=== PATIENT | female | born 1970 | race Hispanic/Latino ===

== ENCOUNTER 2016-11-09 13:20 | Emergency (ER) | payer SELFPAY ==
[2016-11-09 13:51] VITALS: BP 99/60; PULSE 105; RESP 22; TEMP 98; O2SAT 99
--- NOTE | 2016-11-09 14:19 | ED PDOC ---
HPI: General Adult Time Seen by Provider: 11/09/16 14:05 Chief Complaint (Nursing): Palpitations Chief Complaint (Provider): palpiations History Per: Patient History/Exam Limitations: no limitations Onset/Duration Of Symptoms: Hrs (x 3) Have you had recent travel within the past 21 days to any of the following countries: [place], [place], [place] or [place]?: No Current Symptoms Are (Timing): Gone Now Additional Complaint(s): Sonam Guerrero is a 46 year old female, with a previous medical history of anxiety, depression, hormone imbalance, increased prolactin, and gamaliel, who presents to the ED with complaints of chest palpitations which began 3 hours prior to arrival. Pt. reports to taking her prescribed klonopin which alleviated the symptom. Pt reports no heart palpitations at this time. Pt states to having accupuncture done 5 days ago where she noted oil being secreted from her left breast. Pt also states to producing milk. Pt squeezed her left breast to show a drop of milk. Pt also states to seeing "eggs" in her stool. Pt denies any chest pain, nausea, vomiting, diarrhea, vision changes, abdominal pain or extremity pain. Of note, Pt is requesting milk be tested, an imaging of her breast, a hormonal panel and imaging for her pituitary gland.Pt reports her TSH is 2.0 but states her "optimal" levels are between 0-1. Pt states to having multiple PMD with no private equity associate. Pt states endocrinologists do nothing for her. Pt states to currently taking klonopin, armour, and zoloft. PMD: multiple PMDs including Janusz Rees Past Medical History Reviewed: Historical Data, Nursing Documentation, Vital Signs Vital Signs: Last Vital Signs Temp 98.0 F 11/09/16 13:47 Pulse 105 H 11/09/16 13:47 Resp 22 11/09/16 13:47 BP 99/60 L 11/09/16 13:47 Pulse Ox 99 11/09/16 16:08 - Medical History Other PMH: gamaliel, hormonal imbalance - Family History Family History: States: Unknown Family Hx - Allergies Allergies/Adverse Reactions: Allergies Allergy/AdvReac Type Severity Reaction Status Date / Time Penicillins Allergy RASH Verified 11/09/16 13:47 Review of Systems ROS Statement: Except As Marked, All Systems Reviewed And Found Negative Eyes: Negative for: Vision Change Cardiovascular: Positive for: Palpitations (gone now ). Negative for: Chest Pain Gastrointestinal: Negative for: Nausea, Vomiting, Abdominal Pain, Diarrhea Musculoskeletal: Negative for: Leg Pain Physical Exam - Reviewed Nursing Documentation Reviewed: Yes Vital Signs Reviewed: Yes - Physical Exam Appears: Positive for: Well, Non-toxic, No Acute Distress Head Exam: Positive for: ATRAUMATIC, NORMAL INSPECTION, NORMOCEPHALIC Skin: Positive for: Normal Color, Warm, DRY Eye Exam: Positive for: EOMI, Normal appearance, PERRL ENT: Positive for: Normal ENT Inspection Neck: Positive for: Normal, Painless ROM Cardiovascular/Chest: Positive for: Regular Rate, Rhythm Respiratory: Positive for: CNT, Normal Breath Sounds Gastrointestinal/Abdominal: Positive for: Normal Exam, Bowel Sounds, Soft. Negative for: Tenderness Back: Positive for: Normal Inspection. Negative for: L CVA Tenderness, R CVA Tenderness Extremity: Positive for: Normal ROM. Negative for: Tenderness, Pedal Edema Neurologic/Psych: Positive for: Alert, manager heart II-XII, Oriented. Negative for: Motor/Sensory Deficits Comments: breast exam preformed with Channing RN as acetylene torch burner. No masses or tenderness upon exam. - ECG O2 Sat by Pulse Oximetry: 99 (RA) Pulse Ox Interpretation: Normal - Progress ED Course And Treament: 1417: States she does not want to be seen any further. Wishes to leave and will get testing done at her doctor's office. AAOx3. Pain free. Ambulated with no issues. Has capacity to make decisions. Will AMA. Aware of possible or decreased functioning from the cause of her symptoms. Medical Decision Making Medical Decision Making: Initial Impression: palpitation Leaving Against Medical Advice (AMA): This patient is choosing to leave against medical advice. The EP has personally explained to the pt that choosing to do so may result in permanent bodily harm or . The EP discussed at great length that without further evaluation and monitoring there may be unforeseen circumstances and/or deterioration causing permanent bodily harm or as a result of their choice. The pt verbalized these risks back to the physician in laymans terms. The pt is alert , oriented, and shows the mental capacity to make clear decisions regarding the pts health care at this time. The pt continues to wish to leave against medical advice. In light of the pts decision to leave AMA, follow-up has been arranged and the pt is aware of the importance of following up as instructed. The pt has been advised that they should return to the ED immediately if they change their mind at any time, or if thier condition begins to change or worsen in any way. Scribe Attestation: Documented by Gala Mansfield, acting as a scribe for Kahlil Hayward MD. Provider Scribe Attestation: All medical record entries made by the Scribe were at my direction and personally dictated by me. I have reviewed the chart and agree that the record accurately reflects my personal performance of the history, physical exam, medical decision making, and the department course for this patient. I have also personally directed, reviewed, and agree with the discharge instructions and disposition. Disposition - Clinical Impression Clinical Impression: Palpitations, Breast discharge - Patient ED Disposition Is Patient to be Admitted: No - Disposition Disposition: Against Medical Advice Disposition Time: 14:21 Condition: STABLE Additional Instructions: You are going against medical advice. You are aware of possible or decreased functioning from the cause of your symptoms. You are taking your own risk and going home. Return soon as possible for further testing and evaluation. Instructions: Palpitations (ED), [facility] ([place])
== END 2016-11-09 15:30 | disposition left against medical advice (07) ==
LOC: H.ER 13:20
DX: R00.2 Palpitations (principal)

== ENCOUNTER 2018-01-27 05:00 | Emergency (ER) | payer BC ==
--- NOTE | 2018-01-27 06:45 | ED PDOC ---
HPI: Abdomen Time Seen by Provider: 01/27/18 05:59 Chief Complaint (Nursing): Back Pain Chief Complaint (Provider): bilateral flank pain History Per: Patient Onset/Duration Of Symptoms: Days (x1 week), Intermittent Episodes Current Symptoms Are (Timing): Still Present Additional Complaint(s): 47 year old female presents to the emergency department complaining of intermittent episodes of bilateral flank pain associated with dysuria onset one week. Patient states earlier this week she saw her PMD who ordered blood work. She denies fever and reports she is not currently on any antibiotics or pain medication. PMD: Dr. Flowers Past Medical History Reviewed: Historical Data, Nursing Documentation, Vital Signs Vital Signs: Last Vital Signs Temp 98.2 F 01/27/18 08:57 Pulse 75 01/27/18 08:57 Resp 14 01/27/18 08:57 BP 118/79 01/27/18 08:57 Pulse Ox 100 01/27/18 08:57 - Medical History PMH: Anxiety, Hypothyroidism (hashimotos) Other PMH: Aram's disease - Surgical History Surgical History: No Surg Hx - Family History Family History: States: Unknown Family Hx - Social History Current smoker - smoking cessation education provided: No Alcohol: None Drugs: Denies - Home Medications Home Medications: Ambulatory Orders Medication Instructions Recorded Fluconazole [Diflucan] 150 mg PO DAILY #2 tab 01/27/18 Naproxen [Naprosyn] 500 mg PO Q12H #20 tab 01/27/18 Sulfamethoxazole/Trimethoprim 1 tab PO BID #20 tab 01/27/18 [Bactrim DS 800 mg-160 mg] - Allergies Allergies/Adverse Reactions: Allergies Allergy/AdvReac Type Severity Reaction Status Date / Time Penicillins Allergy RASH Verified 11/09/16 13:47 Review of Systems ROS Statement: Except As Marked, All Systems Reviewed And Found Negative Constitutional: Negative for: Fever Gastrointestinal: Positive for: Abdominal Pain (bilateral flank pain) Genitourinary Female: Positive for: Dysuria Physical Exam - Reviewed Nursing Documentation Reviewed: Yes Vital Signs Reviewed: Yes - Physical Exam Appears: Positive for: No Acute Distress Head Exam: Positive for: ATRAUMATIC, NORMOCEPHALIC Skin: Positive for: Normal Color, Warm, Dry Eye Exam: Positive for: Normal appearance Neck: Positive for: Normal, Painless ROM, Supple Cardiovascular/Chest: Positive for: Regular Rate, Rhythm. Negative for: Murmur Respiratory: Positive for: Normal Breath Sounds. Negative for: Accessory Muscle Use, Respiratory Distress Gastrointestinal/Abdominal: Positive for: Normal Exam, Soft. Negative for: Tenderness Back: Positive for: Normal Inspection. Negative for: L CVA Tenderness, R CVA Tenderness, Vertebral Tenderness Extremity: Positive for: Normal ROM Neurologic/Psych: Positive for: Alert, Oriented (x3). Negative for: Motor/ Sensory Deficits - Laboratory Results Result Diagrams: 01/27/18 06:55 01/27/18 06:55 - ECG O2 Sat by Pulse Oximetry: 99 (RA) Pulse Ox Interpretation: Normal Medical Decision Making Medical Decision Making: Initial Impression: flank pain with dysuria Ddx: uti, kidney stones, musculoskeletal pain Time: 6:22 Initial Plan: --CT Abd / Pelvis --BMP --ED Urine dipstick --CBC with differential --Urinalysis Scribe Attestation: Documented by Vanna Castro, acting as a scribe for John Schofield MD Provider Scribe Attestation: All medical entries made by the Scribe were at my direction and personally dictated by me. I have reviewed the chart and agree that the record accurately reflects my personal performance of the history, physical exam, medical decision making, and the department course for this patient. I have also personally directed, reviewed, and agree with the discharge instructions and disposition. Disposition - Clinical Impression Clinical Impression: UTI (urinary tract infection), Renal cyst, Back pain - Patient ED Disposition Is Patient to be Admitted: Transfer of Care - Disposition Referrals: [facility] [Outside] Ruy Christian MD [Staff Provider] - Disposition: Transfer of Care Disposition Time: 07:00 Condition: STABLE Prescriptions: Fluconazole [Diflucan] 150 mg PO DAILY #2 tab Naproxen [Naprosyn] 500 mg PO Q12H #20 tab Sulfamethoxazole/Trimethoprim [Bactrim DS 800 mg-160 mg] 1 tab PO BID #20 tab Instructions: Urinary Tract Infection, Adult (DC) Forms: [employer] (Syriac) Patient Signed Over To: Elian Coyne
[2018-01-27 07:06] LABS: SQUAMOUS EPITHIAL 17 /hpf (0-5); URINE BACTERIA RARE (<OCC); URINE BILIRUBIN NEGATIVE (NEGATIVE); URINE BLOOD NEGATIVE (NEGATIVE); URINE CLARITY CLOUDY (Clear); URINE COLOR YELLOW (YELLOW); URINE GLUCOSE (UA) NEG (Normal); URINE LEUKOCYTE ESTERASE TRACE Leu/uL (Negative); URINE PROTEIN NEGATIVE (NEGATIVE); URINE UROBILINOGEN 0.2-1.0 mg/dL (0.2-1.0)
[2018-01-27 07:07] LABS: BASO % 0.7 % (0.0-2.0); EOS # 0.1 K/uL (0.0-0.7); EOS % 0.9 % (0.0-4.0); HEMOGLOBIN 13.4 g/dL (12.0-16.0); LYMPH # 1.9 K/uL (1.0-4.3); LYMPH % 30.7 % (20.0-40.0); MEAN CELL VOLUME 91.6 fl (81.0-99.0); MEAN PLATELET VOLUME 8.5 fl (7.2-11.7); MONO # 0.5 K/uL (0.0-0.8); NEUT # 3.7 K/uL (1.8-7.0); NEUT % 59.7 % (50.0-75.0); NRBC % 0.1 % (0.0-0.0); RBC 4.18 Mil/uL (3.80-5.20); RED CELL DISTRIBUTION WIDTH 13.6 % (11.5-14.5); WHITE BLOOD COUNT 6.3 K/uL (4.8-10.8)
[2018-01-27 07:14] LABS: BLOOD UREA NITROGEN 17 mg/dl (7-17); CALCIUM 8.7 mg/dL (8.4-10.2); GFR AFRICAN-AMERICAN > 60; GFR NON-AFRICAN AMERICAN > 60
[2018-01-27] MEDS ORDERED: Iohexol 300 100 ML IJ ONE (07:41)
[2018-01-27] MEDS ORDERED: Sodium Chloride 0.9% 50 ML IV ONE (07:42)
--- NOTE | 2018-01-27 08:26 | CT ---
PROCEDURE: CT Abdomen and Pelvis with contrast HISTORY: bilateral flank pain COMPARISON: None. TECHNIQUE: Contrast dose: Omnipaque 300, 100 cc Radiation dose: Total exam DLP = 583.60 mGy-cm. This CT exam was performed using one or more of the following dose reduction techniques: Automated exposure control, adjustment of the mA and/or kV according to patient size, and/or use of iterative reconstruction technique. FINDINGS: LOWER THORAX: Unremarkable. LIVER: Diminished attenuation is appreciate diffusely compatible with hepatic steatosis. A tiny lucency seen the right lobe liver too small to characterize. The remainder of the liver appears unremarkable. GALLBLADDER AND BILE DUCTS: Unremarkable. PANCREAS: Unremarkable. No gross lesion or ductal dilatation. SPLEEN: Unremarkable. ADRENALS: There is a 1.3 cm nodule at the left adrenal gland, nonspecific in appearance for which follow-up MRI is advised to exclude potential malignancy though this is unlikely. KIDNEYS AND URETERS: A 2.2 x 2.1 cm cyst is seen in the left kidney's upper pole. No hydronephrosis. No solid mass. VASCULATURE: Unremarkable. No aortic aneurysm. BOWEL: No bowel obstruction is appreciated and there is no pericolic repair mesenteric edema. Lail-fq-wbfcgyor fecal loading is seen in various large-bowel segments. Small bowel appears collapsed. APPENDIX: Appendix not identified. No CT evidence to suggest appendicitis at this time. PERITONEUM: Unremarkable. No free fluid. No free air. LYMPH NODES: Unremarkable. No enlarged lymph nodes. BLADDER: Unremarkable. REPRODUCTIVE: Unremarkable. BONES: No acute fracture. OTHER FINDINGS: None. IMPRESSION: 1. Hepatic steatosis. 2. Small simple cyst upper pole left kidney. No obstructive uropathy or radiodense urolithiasis appreciated bilaterally. No perinephric reactive changes bilaterally. 3. 1.3 cm left adrenal nodule for which follow-up abdomen MRI is advised to exclude potential malignancy though this is not likely. 4. No bowel obstruction, mesenteric edema, ascites or free intraperitoneal gas collection
--- NOTE | 2018-01-27 08:51 | ED PDOC ---
- Laboratory Results Result Diagrams: 01/27/18 06:55 01/27/18 06:55 - ECG O2 Sat by Pulse Oximetry: 99 (RA) - Progress Re-evaluation Time: 08:49 Condition: Improved Disposition - Clinical Impression Clinical Impression: UTI (urinary tract infection), Renal cyst - POA Present On Arrival: None - Disposition Referrals: [facility] [Outside] Ruy Christian MD [Staff Provider] - Disposition: Routine/Home Disposition Time: 08:50 Prescriptions: Naproxen [Naprosyn] 500 mg PO Q12H #20 tab Sulfamethoxazole/Trimethoprim [Bactrim DS 800 mg-160 mg] 1 tab PO BID #20 tab Instructions: Urinary Tract Infection, Adult (DC) Forms: [employer] (Amharic)
[2018-01-27 08:58] VITALS: BP 118/79; PULSE 75; RESP 14; TEMP 98.2
[2018-01-27 22:45] VITALS: O2SAT 99
== END 2018-01-27 08:59 | disposition home or self-care (01) ==
LOC: H.ER 05:00
DX: N39.0 Urinary tract infection, site not specified (principal); N28.1 Cyst of kidney, acquired; M54.9 Dorsalgia, unspecified; Z88.0 Allergy status to penicillin; E06.3 Autoimmune thyroiditis
CPT/HCPCS: 74177; 80048; 81003; 84703; 85025; 99283; Q9967